=== PATIENT | female | born 1985 | race Caucasian/White ===

== ENCOUNTER 2020-03-23 15:01 | Outpatient (CLI) | payer OTHER, SELFPAY ==
[2020-03-23 15:45] VITALS: BP 118/78; PULSE 100
[2020-03-23 15:46] LABS: Basophils Absolute Auto 0.1 K/mm3 (0.0-0.1); Basophils Percent Auto 0.7 % (0.2-1.2); Eosinophils Absolute Auto 0.1 K/mm3 (0-0.3); Eosinophils Percent Auto 0.7 % (0-4.4); Hematocrit 33.4 % (37.0-47.0); Hemoglobin 11.5 g/dL (12.0-15.0); Immature Granulocyte Percent A 2.3 % (0-0.5); Lymphocytes Absolute Auto 1.95 K/mm3 (0.9-3.2); Lymphocytes Percent Auto 15.2 % (18.3-44.2); Mean Corpuscular HGB Conc 34.4 g/dl (32-36); Mean Corpuscular Volume 87.2 fl (80-100); Mean Platelet Volume 10.4 fl (7.4-10.4); Monocytes Absolute Auto 1.1 K/mm3 (0.1-0.6); Monocytes Percent Auto 8.2 % (2.6-8.5); Neutrophils Absolute Auto 9.4 K/mm3 (1.3-6.7); Neutrophils Percent Auto 72.9 % (45.5-73.1); Platelet Count Result 297 k/mm3 (150-375); Red Blood Count 3.83 M/mm3 (4.2-5.4); White Blood Count 12.9 K/mm3 (4.5-10.0)
[2020-03-23 15:52] LABS: Add Urine Microscopic? YES; Appearance Urine Cloudy (Clear); Bacteria Urine Trace /hpf; Bilirubin Urine Negative (Negative); Blood Urine Negative (Negative); Color Urine Yellow (Yellow); Glucose Urine UA Negative (Negative); Ketones Urine Negative (Negative); Leukocyte Esterase Ur Negative LEU/UL (NEGATIVE); Nitrate Urine Negative (Negative); Protein Urine Negative (Negative); RBC Urine 0-2 /hpf (0-2); Specific Grav Ur 1.012 (1.001-1.035); Squamous Epithelial Cell Urine Moderate /hpf (Few); Urobilinogen Urine Negative mg/dL (<2.0)
[2020-03-23 15:55] LABS: Alanine Aminotransferase 9 U/L (4-35); Albumin Level 3.4 g/dL (3.5-5.1); Alkaline Phosphatase 112 U/L (38-126); Aspartate Amino Transferase 16 U/L (14-36); Bilirubin,Total 0.2 mg/dL (0.2-1.3); Blood Urea Nitrogen 6 mg/dL (7-17); Calcium 8.8 mg/dL (8.4-10.2); Carbon Dioxide 19 mmol/L (22-30); Chloride 107 mmol/L (98-107); Estimated Glomerular Filt Rate > 60; Glucose 91 mg/dL (65-105); Potassium 4.1 mmol/L (3.4-5.0); Sodium 134 mmol/L (137-145); Uric Acid 4.9 mg/dL (2.5-7.5)
[2020-03-23 16:00] VITALS: BP 124/79; PULSE 96
[2020-03-23 16:10] VITALS: BP 118/78; PULSE 98
[2020-03-23 16:15] VITALS: BP 127/79; PULSE 101
[2020-03-23 16:30] VITALS: BP 125/77; PULSE 91
[2020-03-23 16:45] VITALS: BP 114/62; PULSE 95
[2020-03-23 17:12] LABS: Creatinine Urine 55.6 mg/dL; Total Protein Urine Random 15 mg/dL
--- NOTE | 2020-03-23 17:15 | PC.NURSE ---
Liliam Baca notified of lab results and BP's. OK to dc home.
== END 2020-03-23 17:16 | disposition home or self-care (01) ==
LOC: ANHOBOP 15:07 → ANHOBPP 15:09
PROVIDERS: Obstetrics & Gynecology; Visit Provider Obstetrics & Gynecology
DX: H53.8 Other visual disturbances (principal)
CPT/HCPCS: 36415; 59025; 80053; 81001; 82570; 84156; 84550; 85025; 87077; 87086; 87088; 99199

== ENCOUNTER 2020-04-01 05:30 | Inpatient (IN) | payer OTHER, SELFPAY ==
[2020-04-01] VITALS (60 sets, daily range): BP systolic 64–149; BP diastolic 30–101; PULSE 78–203; RESP 12–16; TEMP 36.7–37.3; O2SAT 99–100; BMI 31.4
--- NOTE | 2020-04-01 05:40 | LDADM ---
This patient, Jessica Damian, was admitted to Labor/Delivery/Recovery 104 on 04/01/20 at 05:30. Plans for labor, pain management and were discussed with patient. Patient/family oriented to hospital policies and general routines including ID bracelet, bed and alarms, visiting hours, pain management, procedures, bathroom and other care routines, personal items, smoking policy, room service/diet and guest tray routines, infant security routines, and visiting hours. Patient/Family are encouraged to report perceived risks to care and to ask questions if they do not understand what they are told or what they should do. See OBIX for further documentation.
[2020-04-01 06:19] LABS: Basophils Absolute Auto 0.1 K/mm3 (0.0-0.1); Basophils Percent Auto 0.6 % (0.2-1.2); Eosinophils Absolute Auto 0.2 K/mm3 (0-0.3); Eosinophils Percent Auto 1.5 % (0-4.4); Hematocrit 33.6 % (37.0-47.0); Hemoglobin 11.6 g/dL (12.0-15.0); Immature Granulocyte Absolute 0.35 K/mm3 (0.00-0.031); Immature Granulocyte Percent A 2.7 % (0-0.5); Lymphocytes Absolute Auto 2.44 K/mm3 (0.9-3.2); Lymphocytes Percent Auto 19.1 % (18.3-44.2); Mean Corpuscular HGB Conc 34.5 g/dl (32-36); Mean Corpuscular Hemoglobin 29.8 pg (26-34); Mean Corpuscular Volume 86.4 fl (80-100); Mean Platelet Volume 10.2 fl (7.4-10.4); Monocytes Absolute Auto 1.1 K/mm3 (0.1-0.6); Monocytes Percent Auto 8.7 % (2.6-8.5); Neutrophils Absolute Auto 8.6 K/mm3 (1.3-6.7); Neutrophils Percent Auto 67.4 % (45.5-73.1); Platelet Count Result 304 k/mm3 (150-375); Red Blood Count 3.89 M/mm3 (4.2-5.4); Red Cell Distribution Width 13.2 % (11.5-14.5); White Blood Count 12.8 K/mm3 (4.5-10.0)
[2020-04-01] MEDS: AMPICILLIN 2 GM/NS 100 ML 2 GM/100 ML BAG IVPB (06:22)
[2020-04-01] MEDS: LACTATED RINGERS 1,000 ML 125 ML IV CONT ×2 (06:22→10:13)
[2020-04-01] MEDS: OXYTOCIN 30 UNITS/NS 500 ML 30 UNITS/500 ML BAG IV CONT (06:22)
[2020-04-01 07:13] LABS: HIV 1/2 Ab P24 Ag Result Negative (Negative)
--- NOTE | 2020-04-01 07:17 | WPDANESEPP ---
Anes - Eval Pre Procedure Procedure: Labor Pain Management Date/Time: 04/01/20 07:17 Surgeon: Devin Acosta MD Preop Diagnosis: Pain during labor Pre Op Diagnosis: IOL Patient Data Age: 34 Gender: F Height: 5 ft 2 in Weight: 78 kg Last Vital Signs Temp 98.6 F 04/01/20 05:52 Pulse 97 04/01/20 06:16 BP 127/89 04/01/20 06:16 Allergies Allergy/AdvReac Type Severity Reaction Status Date / Time No Known Allergies Allergy Verified 03/23/20 13:09 Home Medications Medication Instructions Recorded Confirmed Type PNV cmb#95-ferrous fumarate-FA 1 tablet PO DAILY 03/23/20 03/23/20 History [] Laboratory Tests 04/01/20 04/01/20 04/01/20 06:08 06:08 06:08 WBC 12.8 K/mm3 H K/mm3 (4.5-10.0) RBC 3.89 M/mm3 L M/mm3 (4.2-5.4) Hgb 11.6 g/dL L g/dL (12.0-15.0) Hct 33.6 % L % (37.0-47.0) MCV 86.4 fl fl (80-100) MCH 29.8 pg pg (26-34) MCHC 34.5 g/dl g/dl (32-36) RDW 13.2 % % (11.5-14.5) Plt Count 304 k/mm3 k/mm3 (150-375) MPV 10.2 fl fl (7.4-10.4) Immature Gran % (Auto) 2.7 % H % (0-0.5) Neut % (Auto) 67.4 % % (45.5-73.1) Lymph % (Auto) 19.1 % % (18.3-44.2) Dickinson % (Auto) 8.7 % H % (2.6-8.5) Eos % (Auto) 1.5 % % (0-4.4) Baso % (Auto) 0.6 % % (0.2-1.2) Lymph # (Auto) 2.44 K/mm3 K/mm3 (0.9-3.2) Dickinson # (Auto) 1.1 K/mm3 H K/mm3 (0.1-0.6) Eos # (Auto) 0.2 K/mm3 K/mm3 (0-0.3) Baso # (Auto) 0.1 K/mm3 K/mm3 (0.0-0.1) Abs Immat Gran (auto) 0.35 K/mm3 H K/mm3 (0.00-0.031) Absolute Neuts (auto) 8.6 K/mm3 H K/mm3 (1.3-6.7) Absolute Nucleated RBC 0.0 K/mm3 K/mm3 (0.0-0.012) Nucleated RBC % 0.0 % % (0.0-0.2) RPR Pending HIV 1&2 Ab/P24 Ag 4thGn Negative (Negative) : gestational age (EDC 04/07/20) Patient hx anesthesia problems: none Family hx anesthesia problems: none [facility] Past Medical History Medical History (Updated 04/01/20 @ 07:20 by Annabelle Bustamante CRNA) Tobacco abuse Wrist fracture Surgical History Surgical History (Updated 04/01/20 @ 07:19 by Annabelle Bustamante CRNA) History of appendectomy Social History Social History Smoking packs per day: 0.50 Smoking cigarettes per day: 10.0 Years smoked: 20 Smoking pack-years: 10.00 Smoking status: Current every day smoker Tobacco type: cigarettes Second hand tobacco smoke exposure: Yes Substance use: never Spiritual care concerns: No Exam Day of Procedure 04/01/20 07:17
--- NOTE | 2020-04-01 07:49 | WPDOBADMIT ---
Obstetrics - Admit Note Admission Note: record reviewed. No pertinent additions to the history and/or any subsequent changes in the physical findings that are not consistent with the expected course of the were found. Pt presented this morning for induction with ruptured membranes, anticipate vaginal delivery Additions to the history and/or subsequent changes in the physical findings follow. None.
[2020-04-01 08:21] LABS: Amphetamine Screen Urine Negative (Negative); Barbiturate Screen Urine Negative (Negative); Benzodiazepines Screen Urine Negative (Negative); Cannabinoid Screen Urine Negative (Negative); Cocaine Screen Urine Negative (Negative); Methadone Screen Urine Negative (Negative); Opiate Screen Urine Negative (Negative); Phencyclidine Screen Urine Negative (Negative)
[2020-04-01] MEDS: AMPICILLIN 1 GM/NS 50 ML 1 GM/50 ML BAG IVPB (10:13)
--- NOTE | 2020-04-01 13:59 | PM.OBPRVD ---
OB - Delivery Note Procedure Delivery date: 04/01/20 Procedure: vaginal delivery Intrapartal events: None Delivery augmentation: pitocin Route of delivery: Laceration description: Perineal - 1st Degree Delivery repair: vicryl Specimen: No Estimated blood loss (mL): 260 Anesthesia type: Epidural Disposition: other () Baby Date of : 04/01/20 Time of : 13:47 Weeks of gestation at delivery: 39 Weight (pounds): 7 Weight (ounces): 13 presentation: vertex position: Left Occiput Anterior Placenta delivery description: Spontaneous cord vessel description: 3 Vessels score one minute: 8 score five minutes: 9
[2020-04-01] MEDS: OXYTOCIN 30 UNITS/NS 500 ML 30 UNITS/500 ML BAG 125 UNITS IV CONT (14:21)
--- NOTE | 2020-04-01 17:14 | PC.NURSE ---
Patient transferred to post room #285 per W/C. Support person present. Oriented to unit, room, information board, rooming in, admission packet and security measures. Patient verbalizes understanding.
[2020-04-01] MEDS: IBUPROFEN 600 MG TABLET PO (17:59)
[2020-04-01] MEDS: BENZOCAINE 20% AER SPR (*SP) 56 GM CAN 1 SPRAY TOPICAL (18:01)
[2020-04-01] MEDS: WITCH HAZEL 40 PADS 1 PAD TOPICAL (18:01)
[2020-04-02] MEDS: IBUPROFEN 600 MG TABLET PO ×4 (02:02→23:07)
[2020-04-02 04:15] VITALS: BP 116/64; PULSE 91; RESP 16; TEMP 37.1; O2SAT 98
[2020-04-02 04:37] LABS: Hematocrit 28.8 % (37.0-47.0); Hemoglobin 9.9 g/dL (12.0-15.0)
[2020-04-02] MEDS: ACETAMINOPHEN 325 MG TABLET 650 MG PO (06:14)
[2020-04-02 07:40] LABS: Rapid Plasma Reagin Non-Reactive (NonReactive)
[2020-04-02] MEDS: POLYSACCHARIDE IRON COMPLEX 150 MG CAPSULE PO ×2 (07:48→15:55)
[2020-04-02] MEDS: DOCUSATE SODIUM 100 MG CAPSULE PO ×2 (07:48→15:55)
[2020-04-02] MEDS: MULTIVIT/MIN/PREN/FOL AC/IRON TABLET 1 TAB PO (07:49)
[2020-04-02 08:00] VITALS: BP 117/79; PULSE 85; RESP 18; TEMP 36.9; O2SAT 100
--- NOTE | 2020-04-02 08:14 | PM.OBPNVD ---
OB - PN: Subj Subjective Date/time seen: 04/02/20 08:14 OB - PN: Obj Data Labs CBC & Chem 7: 04/02/20 04:00 Labs: Laboratory Results - last 24 hr 04/01/20 04/01/20 04/02/20 06:08 07:59 04:00 Hgb 9.9 L Hct 28.8 L Urine Opiates Screen Negative Urine Methadone Screen Negative Ur Barbiturates Screen Negative Ur Phencyclidine Scrn Negative Ur Amphetamine Screen Negative U Benzodiazepines Scrn Negative Urine Cocaine Screen Negative U Cannabinoids Screen Negative RPR Non-reactive OB - PN A/P Time Spent With Patient Time: Total time spent is greater than 50% in coordination of care (as documented) at patient's floor/unit and/or counseling patient: Review of Systems Review of Systems: All systems reviewed & are unremarkable except as noted in HPI and below Exam Narrative: Exam Narrative: Fundus firm and vaginal flow controlled. Const: General: comfortable Resp: Effort & Inspection: normal respiratory effort Cardio: Rate: regular rate Psych: Appearance: grossly normal Affect: normal affect Attitude: cooperative Judgement: Good judgement present (Psych)
--- NOTE | 2020-04-02 09:45 | WPDANLDPN2 ---
Anes-Prog Note L&D Date/Time: 04/02/20 09:45 Comfortable throughout: labor and delivery Neuraxial method: epidural Epidural/Spinal procedure site: clean & non-tender Neuro status: Neuro function grossly intact. Cardiovascular status: normal Respiratory status: normal Airway patency: baseline Mental status: baseline Post-Op hydration status: normal Vital Signs: Last Vital Signs Temp 37.1 C 04/02/20 04:15 Pulse 91 04/02/20 04:15 Resp 16 04/02/20 04:15 BP 116/64 04/02/20 04:15 Pulse Ox 98 04/02/20 04:15 Post-procedural complaints: none Patient feedback: Patient satisfied with anesthetic care.
--- NOTE | 2020-04-02 15:35 | PC.NURSE ---
Consulted with patient, mother reports she is breast and bottle feeding. Mother states latches eagerly nurses for a short time and will fall asleep. Mother has slight tenderness with feedings. Reviewed feeding cues, frequencies, duration of feedings, feeding elimination flow sheet, and signs of adequate intake. Demonstrated stimulation techniques to wake for feeding. Mother puts to breast in cradle, allowing infant to self attach with a shallow latch. Assisted with infant to breast. Reviewed positioning/alignment in cross cradle, holding breast in U hold and guided asymmetrical latch on. Discussed rational for each. was able to latch correctly. nursed eagerly, with steady draws and frequent swallowing noted. Reviewed signs of a correct latch, effective nursing and suck swallow ratio. was[able/unable] to maintain latch without discomfort to mother. Nipple care reviewed. Advised mother to stimulate to keep nursing effectively to assist with maintaining deep latch and increased intake. Reviewed it is her choice to supplement as she chooses, is nursing effectively and does not require supplement by observation. Instructed mother to call out for RN assistance if she is unable to latch for feeding or she has discomfort with nursing. Instructed feeding should be initiated three hours from start of last feeding or if feeding cues are noted before. Mother voiced understanding of information shared.
[2020-04-02] MEDS: WITCH HAZEL 40 PADS 1 PAD TOPICAL (18:01)
[2020-04-02 20:58] VITALS: BP 136/75; PULSE 97; RESP 17; TEMP 36.8
[2020-04-03 07:00] VITALS: BP 114/77; PULSE 87; RESP 14; TEMP 36.7
[2020-04-03] MEDS: POLYSACCHARIDE IRON COMPLEX 150 MG CAPSULE PO (07:08)
[2020-04-03] MEDS: MULTIVIT/MIN/PREN/FOL AC/IRON TABLET 1 TAB PO (07:08)
[2020-04-03] MEDS: DOCUSATE SODIUM 100 MG CAPSULE PO (07:08)
[2020-04-03] MEDS: IBUPROFEN 600 MG TABLET PO (07:08)
--- NOTE | 2020-04-03 07:38 | PM.OBPNVD ---
OB - PN: Subj Subjective Date/time seen: 04/03/20 07:38 Patient comments: no complaints, pain well controlled and other (Lochia similar to menses) [place] baby status: doing well OB - PN: Obj Data Labs CBC & Chem 7: 04/02/20 04:00 Labs: Laboratory Results - last 24 hr 04/01/20 06:08 RPR Non-reactive OB - PN A/P Plan day: 2 (s/p vaginal delivery, doing well) Plan: routine care, discharge home and other (Follow up in office in 4 weeks) Time Spent With Patient Time: Total time spent is greater than 50% in coordination of care (as documented) at patient's floor/unit and/or counseling patient: Exam Const: General: no acute distress GI: Inspection: other (Fundus firm and nontender below umbilicus) GI Palp: Yes Soft to palpation and No Tenderness to palpation present (GI) Extrem: General: no edema
--- NOTE | 2020-04-03 09:10 | PC.NURSE ---
Observed mother is able to independently latch with appropriate positioning/alignment. Mother reports previous assist has assisted with deeper latch. She denies any nipple discomfort, is feeding as required and waking infant to feed if needed. Infant has had at least 8 effective feedings in the past 24 hours, and is currently meeting outcomes for weight, output, jaundice and feeding frequencies. Mother states she feels confident to continue effective at home. Reviewed transition to breast milk, signs of adequate intake, and engorgement/relief. Instructed to call ICP if intake/output less than required. Reviewed regular medications mother is taking. Information provided per Geraldine. Reviewed community resources on the [facility] website and in the Mom/Baby guide. Information on outpatient services provided. Mother has no further questions at this time.
--- NOTE | 2020-04-03 09:27 | PC.NURSE ---
Patient viewed the discharge video Mother & Baby Care, The First Two Weeks . Patient was given the opportunity and encouraged to ask questions. Patient verbalized understanding of information shared and has been given the mother/baby guide for home reference.
[2020-04-03] MEDS: TETANUS,DIPHTHERIA,AC PERTUSSIS ADULT (0.5 ML) BOOSTRIX IM (11:45)
--- NOTE | 2020-04-06 07:13 | PM.OBDSVD ---
DS: Admitting Diagnosis Admitting Diagnosis Admitting Diagnosis: Encounter for supervision of normal , unspecified, third trimester OB - DS: Summary OB Procedures : None OB Procedures Intrapartum: Spontaneous Vag Delivery OB Procedures: : None Time Spent with Patient Time attestation: Total time spent providing and/or coordinating discharge services: Discharge Plan Discharge Consulting providers: Vernon Diaz ; Cherelle Baca ; Ginny Watson Discharging Clinician: Leah Hylton Patient Disposition: Home, Self-Care Activity: may drive after 2 weeks and as tolerated Diet: regular Discharge Instructions: Education: Mom and Baby Guide Given to: Mother Follow-Up: Call your delivering provider's office for an appointment to be seen in: 4 Weeks Mom and baby should come to the [facility] for the follow-up appointment. Appointment Date/Time: April 04, 2020 at 11:00 am What to expect at your follow-up visit: Blood Pressure Check Physical Assessment Call [phone] if you are unable to keep your appointment time. BREAST CARE: 1. Wear a snug supportive bra. 2. For engorgement discomfort: Breast Feeding: A. Apply warm moist washcloths B. Express milk as needed to relieve engorgement C. Wear loose clothing 3. For sore nipples: A. Identify correct latch-on B. Apply warm moist washcloths before and after nursing C. Air dry nipples after nursing D. May apply Lansinoh cream to nipples EPISIOTOMY/PERINEAL CARE: 1. Until bleeding stops, use your jb bottle after urinating 2. Change your pad frequently throughout the day 3. You may take sitz baths several times a day (fill your bathtub with warm water and soak for 20 minutes.) Do NOT bathe in the water 4. No tub baths until seen by your physician - You may shower ACTIVITY: 1. Rest as much as possible. 2. Do not exercise or lift anything heavier than your baby (such as laundry or other children.) 3. Avoid stairs or driving as much as possible. 4. Do not put anything into the vagina. No douching, tampons, or sexual activity until seen by physician. NOTIFY PHYSICIAN IF YOU HAVE ANY QUESTIONS OR IF ANY OF THE FOLLOWING SYMPTOMS OCCUR: 1. If your perineum becomes red, swollen, or more painful than what you have experienced in the hospital. 2. If your vaginal bleeding becomes foul smelling. 3. If your vaginal bleeding becomes more heavy than a period or if your bleeding changes from pink to bright red. However, you may pass an occasional walnut-sized clot once or twice for the first week . 4. If you experience a sharp, shooting pain in your calves. 5. If you discover a hard, reddened area on your breast or if you experience flu-like symptoms. DIET: 1. Eat regular, well-balanced meals. 2. Drink plenty of fluids daily. If , drink to thirst. Stand Alone Forms: General Discharge Information Follow-up/Referrals: Cherelle Baca CNM [Certified Nurse Quitline Counselor] - Call for Appointment Discharge Medications: New ibuprofen 600 mg Tablet 600 mg PO Q6H PRN (Reason: Cramping) Qty: 60 RF: 0 Continued PNV cmb#95-ferrous fumarate-FA [] 28 mg iron- 800 mcg Tablet 1 tablet PO DAILY RF: 0 Date of admission: 04/01/20 05:30 Primary Care Provider: PHYSICIAN,[employer] PLAYER Admitting Provider: Leah Hylton Discharge Date/Time: 04/03/20 12:12 Attending physician on admission: Leah Hylton
== END 2020-04-03 12:12 | disposition home or self-care (01) | DRG 560 ==
LOC: ANHLDR 05:32 → ANHOB2 16:28
PROVIDERS: Advanced Practice Midwife; Admitting Provider Obstetrics & Gynecology; Visit Provider Obstetrics & Gynecology
DX: O99.334 Smoking (tobacco) complicating childbirth (principal); Z37.0 Single live birth; Z3A.39 39 weeks gestation of pregnancy; F17.210 Nicotine dependence, cigarettes, uncomplicated; O70.0 First degree perineal laceration during delivery
CPT/HCPCS: 36415; 80307; 84112; 85014; 85018; 85025; 86592; 86703; 86850; 86900; 86901; 90715; A9270; G0432; J0290; J2590; J2795; J7120

== ENCOUNTER 2020-09-06 12:03 | Emergency (ER) | payer OTHER, SELFPAY ==
--- NOTE | ~2020-09-06 | CT_ITS ---
EXAMINATION: CT abdomen pelvis wo con DATE: 09/06/2020 13:16 INDICATION: Right flank pain for 2 days TECHNIQUE: Computed tomography (CT) of the abdomen and pelvis was performed without intravenous contr ast. The dose-length product was 273.28 mGy-cm. Automated exposure control and iterative reconstruction technique were employed. COMPARISON: None. FINDINGS: Lung bases are unremarkable. No significant pleural or pericardial effusion. Heart size is normal. The liver, spleen, pancreas, adrenal glands. The liver, spleen, pancreas, adrenal glands and kidneys are unremarkable. Gallbladder contains stones . Uterus is enlarged. No renal/ureteral stones or hydronephrosis. No significant vascular abnormality . No lymphadenopathy. Nonobstructive bowel gas pattern. No free air or free fluid. IMPRESSION: 1. No acute abdominal abnormality. 2: Cholelithiasis. Reviewed, dictated and finalized at location B.
[2020-09-06 12:05] VITALS: BP 146/88; PULSE 100; RESP 17; TEMP 36.2; O2SAT 100
[2020-09-06 12:39] LABS: Add Urine Microscopic? YES; Appearance Urine Clear (Clear); Bacteria Urine Trace /hpf; Bilirubin Urine Negative (Negative); Blood Urine Negative (Negative); Color Urine Yellow (Yellow); Glucose Urine UA Negative (Negative); Ketones Urine Negative (Negative); Leukocyte Esterase Ur Trace LEU/UL (Negative); Mucus Urine Heavy /lpf; Nitrate Urine Negative (Negative); Protein Urine Negative (Negative); Specific Grav Ur 1.027 (1.001-1.035); Squamous Epithelial Cell Urine Many /hpf (Few)
[2020-09-06 12:40] LABS: Basophils Absolute Auto 0.1 K/mm3 (0.0-0.1); Basophils Percent Auto 0.6 % (0.2-1.2); Eosinophils Absolute Auto 0.1 K/mm3 (0-0.3); Eosinophils Percent Auto 1.5 % (0-4.4); Hematocrit 35.8 % (37.0-47.0); Immature Granulocyte Absolute 0.03 K/mm3 (0.00-0.031); Immature Granulocyte Percent A 0.3 % (0-0.5); Lymphocytes Absolute Auto 1.37 K/mm3 (0.9-3.2); Lymphocytes Percent Auto 15.6 % (18.3-44.2); Mean Corpuscular HGB Conc 36.3 g/dl (32-36); Mean Corpuscular Volume 85.4 fl (80-100); Monocytes Absolute Auto 0.8 K/mm3 (0.1-0.6); Monocytes Percent Auto 8.8 % (2.6-8.5); Neutrophils Absolute Auto 6.4 K/mm3 (1.3-6.7); Neutrophils Percent Auto 73.2 % (45.5-73.1); Platelet Count Result 229 k/mm3 (150-375); Red Blood Count 4.19 M/mm3 (4.2-5.4); Red Cell Distribution Width 12.1 % (11.5-14.5); White Blood Count 8.8 K/mm3 (4.5-10.0)
[2020-09-06 12:52] LABS: Anion Gap 5 mmol/L (8-16); Blood Urea Nitrogen 7 mg/dL (7-17); Calcium 8.3 mg/dL (8.4-10.2); Carbon Dioxide 25 mmol/L (22-30); Chloride 103 mmol/L (98-107); Estimated CRCL calculation 108 ml/min; Estimated Glomerular Filt Rate > 60; Glucose 118 mg/dL (65-105); Potassium 3.5 mmol/L (3.4-5.0); Sodium 133 mmol/L (137-145)
--- NOTE | 2020-09-06 12:52 | ED.ABDPAIN ---
HPI - Abdominal Pain General Chief Complaint: Abdominal Pain Stated Complaint: rt flank pain Time Seen by Provider: 09/06/20 12:15 History of Present Illness HPI narrative: Patient is a 35-year-old female complaining of right flank pain radiating to her right lower quadrant, 6 out of 10, sharp, started yesterday. Patient denies any nausea, vomiting, diarrhea or urinary symptoms. Patient denies any chest pain shortness of breath or fever. Related Data Allergies Allergy/AdvReac Type Severity Reaction Status Date / Time No Known Allergies Allergy Verified 09/06/20 12:08 Review of Systems Review of Systems: All systems reviewed & are unremarkable except as noted in HPI and below Constitutional: Constitutional: Denies body ache(s), Denies chills, Denies excessive sweating, Denies fatigue, Denies fever(s), Denies headache(s), Denies lethargy, Denies malaise, Denies weakness and Denies weight loss Eyes: Eyes: Denies blurry vision, Denies change in vision and Denies loss of vision ENT: Denies dizziness, Denies ear discharge, Denies headache(s), Denies lip swelling, Denies epistaxis, Denies nasal congestion, Denies neck pain, Denies throat swelling and Denies tongue swelling Cardiovascular: Cardiovascular: Denies chest pain, Denies chest pain at rest, Denies chest pain with activity, Denies diaphoresis, Denies rapid heart rate, Denies edema, Denies irregular heart rhythm, Denies lightheadedness, Denies palpitations, Denies dyspnea and Denies dyspnea on exertion Respiratory: Respiratory: Denies chest congestion, Denies cough, Denies hemoptysis, Denies dyspnea and Denies dyspnea on exertion Gastrointestinal: Gastrointestinal: Denies abdominal pain, Denies melena, Denies hematochezia, Denies diarrhea, Denies nausea, Denies vomiting and Denies hematemesis Musculoskeletal: Musculoskeletal: Denies abnormal gait, Denies deformity, Denies joint swelling, Denies limited range of motion, Denies neck pain and Denies numbness Neurologic: Denies Abnormal speech present, Denies abnormal gait, Denies confusion, Denies dizziness, Denies headache(s), Denies focal weakness, Denies loss of vision, Denies numbness, Denies Other visual disturbances, Denies Sensory deficit (Neuro) and Denies weakness Psychiatric: Psychiatric: Denies confusion, Denies depression, Denies auditory hallucinations, Denies homicidal ideation and Denies suicidal ideation Endocrine: Endocrine: Denies cold intolerance, Denies excessive sweating, Denies fatigue, Denies heat intolerance and Denies palpitations Hematologic/Lymphatic: Hematologic/Lymphatic: Denies easy bleeding and Denies easy bruising Allergic/Immunologic: Allergic/Immunologic: Denies lip swelling, Denies throat swelling and Denies tongue swelling PMFSH Past Medical History Medical History (Updated 09/06/20 @ 14:50 by Karlos Stewart MD) Tobacco abuse Wrist fracture Surgical History Surgical History (Updated 04/01/20 @ 07:19 by Annabelle Bustamante CRNA) History of appendectomy Family History Family History Sibling Thyroid ca Social History Social History Smoking packs per day: 0.50 Smoking cigarettes per day: 10.0 Years smoked: 20 Smoking pack-years: 10.00 Smoking status: Current every day smoker Tobacco type: cigarettes Second hand tobacco smoke exposure: Yes Substance use: never Gender identity (if verbalized by the patient): Female Spiritual care concerns: No Exam Const: General: cooperative, healthy appearing, comfortable, no acute distress, well developed, alert and awake; No confusion Orientation/consciousness: oriented to person, oriented to place, oriented to time, patient oriented x3 and No confusion Limitations: no limitations HENMT: Head: normal to inspection, normocephalic and atraumatic Ears: hearing grossly normal bilaterally, TM normal on the right and TM normal on the left General nose exam
[2020-09-06] MEDS: KETOROLAC 30 MG/ML VIAL (*BKC) IV PUSH (13:35)
[2020-09-06 15:14] VITALS: BP 136/88; PULSE 84; RESP 16; O2SAT 97
== END 2020-09-06 15:15 | disposition home or self-care (01) ==
PROVIDERS: Emergency Medicine; Emergency Provider Emergency Medicine
DX: K80.20 Calculus of gallbladder without cholecystitis without obstruction (principal); F17.210 Nicotine dependence, cigarettes, uncomplicated
CPT/HCPCS: 36415; 74176; 80048; 81001; 81025; 85025; 96374; 99284; J1885

== ENCOUNTER 2021-07-17 15:01 | Emergency (ER) | payer OTHER, SELFPAY ==
[2021-07-17 15:11] VITALS: BP 141/78; PULSE 98; RESP 16; TEMP 35.8; O2SAT 99
--- NOTE | 2021-07-17 15:11 | ED.WOUNDLAC ---
HPI - Wound/Laceration General Chief Complaint: Extremity Injury, Upper Stated Complaint: painful left shoulder Time Seen by Provider: 07/17/21 15:11 Source: patient and RN notes reviewed Mode of arrival: ambulatory Limitations: no limitations History of Present Illness HPI narrative: 36-year-old female presents to the [facility] with an abscess to the posterior left shoulder. Unsure of how she got the infection. Has been there for a couple of days. Has been taking Tylenol for pain. Area is 4 cm in diameter, raised, hot to touch. Related Data Home Medications Medication Instructions Recorded Confirmed norethindrone (contraceptive) mg 07/17/21 Allergies Allergy/AdvReac Type Severity Reaction Status Date / Time No Known Allergies Allergy Verified 09/06/20 12:08 Review of Systems Review of Systems: All systems reviewed & are unremarkable except as noted in HPI and below Constitutional: Constitutional: Reports no additional constitutional complaints Eyes: Eyes: Reports no additional eye complaints ENT: Reports system reviewed and no additional complaints, except as documented Cardiovascular: Cardiovascular: Reports no additional cardiovascular complaints Respiratory: Respiratory: Reports no additional respiratory complaints Musculoskeletal: Musculoskeletal: Reports no additional musculoskeletal complaints Integumentary/Breasts: Skin/Breast: Reports as per HPI and Reports erythema Neurologic: Reports system reviewed and no additional complaints, except as documented Psychiatric: Psychiatric: Reports no additional psychiatric complaints Allergic/Immunologic: Allergic/Immunologic: Reports no additional allergic/immunologic complaints PMFSH Past Medical History Medical History (Updated 07/18/21 @ 16:08 by Steph Krishnamurthy) Tobacco abuse Wrist fracture Surgical History Surgical History History of appendectomy Family History Family History Sibling Thyroid ca Social History Social History Smoking packs per day: 0.50 Smoking cigarettes per day: 10.0 Years smoked: 20 Smoking pack-years: 10.00 Smoking status: Current every day smoker Tobacco type: cigarettes Second hand tobacco smoke exposure: Yes Substance use: never Gender identity (if verbalized by the patient): Female Spiritual care concerns: No Exam Const: General: healthy appearing, no acute distress and alert Nutritional Appearance: well nourished Orientation/consciousness: patient oriented x3 Limitations: no limitations HENMT: Head: normal to inspection Eyes: Pupils: Equal, round and reactive pupils present Neck: Neck: normal visual inspection, no lymphadenopathy and no meningeal signs Chest: Chest palpation & inspection: normal inspection of the chest Resp: Effort & Inspection: normal respiratory effort Auscultation: clear to auscultation bilaterally Cardio: Rate: regular rate Rhythm: regular rhythm Back/Spine/Pelvis: Back: no CVA tenderness Skin: Wounds: wounds noted (Abscess left scapular area) Full body images: 1. 4 cm diameter red, raised small fluctuant center, cellulitic changes Neuro: General: patient oriented x3, moves all extremities, no meningeal signs and no focal motor deficits Speech: normal speech Gait exam (Neuro): Normal gait present Extrem: General: normal to inspection Psych: Appearance: grossly normal and well kempt Mental Status: mental status grossly normal Affect: normal affect Attitude: cooperative Thought content: Yes Normal thought content present Course Course Emergency Course: Discharge instructions reviewed with patient, as well as provided in writing per nursing staff. The instructions also include specific and strict return/GO TO THE ER as well as f/u information. All questions have been answered
--- NOTE | 2021-07-17 15:25 | PC.NURSE ---
metals sales representative in to do i and d.
== END 2021-07-17 15:38 | disposition home or self-care (01) ==
PROVIDERS: Emergency Provider Nurse Practitioner
DX: L03.312 Cellulitis of back [any part except buttock and flank] (principal); F17.210 Nicotine dependence, cigarettes, uncomplicated
CPT/HCPCS: 10060; 87070; 87075; 87147; 87186; 87205; 99213; G0463

== ENCOUNTER 2021-07-20 00:38 | Emergency (ER) | payer OTHER, SELFPAY ==
[2021-07-20 00:41] VITALS: BP 129/75; PULSE 110; RESP 18; TEMP 36.5; O2SAT 100
[2021-07-20 02:16] VITALS: BP 107/84; PULSE 93; RESP 20; O2SAT 100
--- NOTE | 2021-07-20 03:02 | PC.NURSE ---
EDP at bedside for I&D.
--- NOTE | 2021-07-20 03:24 | ED.SKABFB ---
HPI - Skin/Abscess/Foreign Bdy General Chief complaint: Skin/Abscess/Foreign Body Stated complaint: wound lt shoulder Time Seen by Provider: 07/20/21 02:06 History of Present Illness HPI narrative: Patient presents for wound check. Patient reports she was seen a couple days ago at urgent care had an I&D performed was started on Bactrim and discharged home. Reports her pain and swelling have gotten progressively worse so she came to the ER for evaluation pain is achy, constant, worse with trying to use her extremity or any sort of movement radiates up her neck and down her arm. She denies any fevers, nausea, vomiting Related Data Home Medications Medication Instructions Recorded Confirmed norethindrone (contraceptive) mg 07/17/21 Allergies Allergy/AdvReac Type Severity Reaction Status Date / Time No Known Allergies Allergy Verified 07/20/21 00:47 Review of Systems Review of Systems: CONSTITUTIONAL: Denies fever, chills, or sweats. EYES: Denies visual changes, redness, or discharge. ENT: Denies rhinorrhea, congestion, sore throat, or otalgia. CARDIOVASCULAR: Denies chest pain, palpitations, or edema. RESPIRATORY: Denies cough or dyspnea. GASTROINTESTINAL: Denies abdominal pain, nausea, vomiting, or diarrhea. GENITOURINARY: Denies dysuria or hematuria. SKIN: Denies rash or itching. MUSCULOSKELETAL: Denies back pain, joint pain, or myalgia. NEUROLOGIC: Denies headache, numbness, dizziness, or weakness. PSYCHIATRIC: Denies anxiety or depression. All systems reviewed & are unremarkable except as noted in HPI and below PMFSH Past Medical History Medical History Tobacco abuse Wrist fracture Surgical History Surgical History History of appendectomy Family History Family History Sibling Thyroid ca Social History Social History Smoking packs per day: 0.50 Smoking cigarettes per day: 10.0 Years smoked: 20 Smoking pack-years: 10.00 Smoking status: Current every day smoker Tobacco type: cigarettes Second hand tobacco smoke exposure: Yes Substance use: never Gender identity (if verbalized by the patient): Female Spiritual care concerns: No Exam Narrative: GENERAL: Well-appearing, well-nourished, and in no acute distress. HEAD: Normocephalic, atraumatic. EYES: PERRLA and EOMI. ENT: Nares clear, no rhinorrhea or epistaxis. Mucous membranes moist. NECK: Supple. No masses. No JVD EXTREMITIES: Limited range of motion of the left shoulder due to pain Back: There is moderate-sized area edema partially 1 x 2 cm with purulent material being drained from the central aspect of the edema. There is surrounding erythema approximately 3 x 3 cm area. It is exquisitely tender to palpation SKIN: Warm, dry, no rash. NEURO: No focal deficits. Alert and oriented x3. PSYCH: Normal mood and affect. Course Vital Signs Vital signs: Vital Signs Temperature 36.5 C 07/20/21 00:41 Pulse Rate 110 H 07/20/21 00:41 Respiratory Rate 18 07/20/21 00:41 Blood Pressure 129/75 07/20/21 00:41 Pulse Oximetry 100 07/20/21 00:41 Temperature 36.5 C 07/20/21 00:41 Pulse Rate 89 07/20/21 03:41 Respiratory Rate 18 07/20/21 03:41 Blood Pressure 116/78 07/20/21 03:41 Pulse Oximetry 100 07/20/21 03:41 Procedures Abscess I/D back: Date of Incision: 07/20/21 Time of Incision: 03:18 Side (if applicable): left Sedation/analgesia: none Local Anesthetic: lidocaine 1% and with epi Amount of anesthesia used (mL): 7 Technique: incised with #11 blade and probed loculations Amount of fluid expressed (mL): 6 Irrigation: Yes Packing used?: plain I&D Results: Pus and Blood MDM - Skin/Abscess/Foreign Bdy
[2021-07-20] MEDS: MORPHINE SULFATE INJ (*CRX) 10 MG/ML AMP IM (03:34)
[2021-07-20 03:41] VITALS: BP 116/78; PULSE 89; RESP 18; O2SAT 100
== END 2021-07-20 04:00 | disposition home or self-care (01) ==
PROVIDERS: Emergency Provider Emergency Medicine
DX: L02.414 Cutaneous abscess of left upper limb (principal); F17.210 Nicotine dependence, cigarettes, uncomplicated
CPT/HCPCS: 10060; 10061; 96372; 99283; J2270

== ENCOUNTER 2021-07-21 15:31 | Emergency (ER) | payer OTHER, SELFPAY ==
[2021-07-21 15:33] VITALS: BP 126/59; PULSE 100; RESP 18; TEMP 37.1; O2SAT 100
--- NOTE | 2021-07-21 16:28 | ED.WOUNDLAC ---
HPI - Wound/Laceration General Chief Complaint: Wound/Laceration Stated Complaint: wound recheck Time Seen by Provider: 07/21/21 15:41 Source: patient Mode of arrival: ambulatory Limitations: no limitations History of Present Illness HPI narrative: This is a 36-year-old female that presents to the emergency department for wound check. Reports she had I&D of an abscess on her left upper back here a couple of days ago. She presents for packing removal and a wound check today. She is currently on cephalexin and Bactrim. Reports continuing drainage from the area. Denies fever. Related Data Home Medications Medication Instructions Recorded Confirmed norethindrone (contraceptive) mg 07/17/21 Allergies Allergy/AdvReac Type Severity Reaction Status Date / Time No Known Allergies Allergy Verified 07/20/21 00:47 Review of Systems Review of Systems: CONSTITUTIONAL: Denies fever SKIN: Reports abscess All systems reviewed & are unremarkable except as noted in HPI and below PMFSH Past Medical History Medical History Tobacco abuse Wrist fracture Surgical History Surgical History History of appendectomy Family History Family History Sibling Thyroid ca Social History Social History Smoking packs per day: 0.50 Smoking cigarettes per day: 10.0 Years smoked: 20 Smoking pack-years: 10.00 Smoking status: Current every day smoker Tobacco type: cigarettes Second hand tobacco smoke exposure: Yes Substance use: never Gender identity (if verbalized by the patient): Female Spiritual care concerns: No Exam Narrative: GENERAL: Well-appearing, well-nourished, and in no acute distress. HEAD: Normocephalic, atraumatic. EYES: EOMI. BACK: Small-moderate area of erythema and edema to the left upper back. There is an incision in the middle of the area with packing in place. Wound is oozing pus. EXTREMITIES: Normal range of motion. No edema. SKIN: Warm, dry, no rash. NEURO: No focal deficits. Alert and oriented x3. PSYCH: Normal mood and affect Course Vital Signs Vital signs: Vital Signs Temperature 98.7 F 07/21/21 15:33 Pulse Rate 100 07/21/21 15:33 Respiratory Rate 18 07/21/21 15:33 Blood Pressure 126/59 L 07/21/21 15:33 Pulse Oximetry 100 07/21/21 15:33 Temperature 98.7 F 07/21/21 15:33 Pulse Rate 100 07/21/21 15:33 Respiratory Rate 18 07/21/21 15:33 Blood Pressure 126/59 L 07/21/21 15:33 Pulse Oximetry 100 07/21/21 15:33 MDM - Wound/Laceration MDM Narrative Medical decision making narrative: Patient presents to the emergency department for a wound to the left upper back. She is afebrile and nontoxic-appearing. Has an abscess to the area that was drained in the emergency department a couple of days ago. A wound culture was sent which has resulted and is positive for MRSA. It is resistant to Bactrim which patient is currently taking. Patient's antibiotic will be changed to clindamycin based on sensitivity results. Patient instructed on continued wound care. She is to follow-up with primary care doctor. She was given warnings to return to the ER Lab Data Attestation: I reviewed the patient's lab results. Critical Care Time Critical Care Time Critical Care Time: No Discharge Plan Discharge Clinical Impression: Abscess Patient Disposition: Home, Self-Care Condition: Stable Instructions: Antibiotic Form, Abscess (ED) Additional Instructions: Return if symptoms worsen or concerns: any increase in redness, swelling, pain, or fever over 101 Stop Bactrim and Cephalexin. Start Clindamycin. Clean wound with mild soapy water daily. Apply antibiotic ointment and clean dressing at least three times daily. Warm compresses
[2021-07-21] MEDS: CLINDAMYCIN HCL 150 MG CAP 300 MG PO (16:43)
--- NOTE | 2021-07-21 16:50 | PC.NURSE ---
wound packing removed and repacked by PA.dressing applied by MARCIN
== END 2021-07-21 16:53 | disposition home or self-care (01) ==
LOC: ANHED 16:34
PROVIDERS: Emergency Provider Emergency Medicine
DX: L02.212 Cutaneous abscess of back [any part, except buttock and flank] (principal); B95.62 Methicillin resistant Staphylococcus aureus infection as the cause of diseases classified elsewhere; F17.210 Nicotine dependence, cigarettes, uncomplicated
CPT/HCPCS: 99283; A9270

== ENCOUNTER 2021-10-04 17:29 | Emergency (ER) | payer OTHER, SELFPAY ==
[2021-10-04 17:37] VITALS: BP 140/84; PULSE 102; RESP 18; TEMP 37.2; O2SAT 99
[2021-10-04 17:39] VITALS: BP 140/84; PULSE 102; RESP 18; TEMP 37.2; O2SAT 99
--- NOTE | 2021-10-04 18:46 | ED.FEMALEGU ---
HPI - Female Genitourinary General Chief complaint: Urogenital-Female Stated complaint: Rash,Yeast Infection Time Seen by Provider: 10/04/21 18:47 Source: patient, RN notes reviewed and old records reviewed Mode of arrival: ambulatory Limitations: no limitations History of Present Illness HPI Narrative: 36 year old female who [facility] with complaints of having thick vaginal white discharge for the past 1 month duration after taking 2-3 oral antibiotics for shoulder wound abscess. She reports that she has taken OTC Monistat with only temporary relief of her symptoms.Patient denies any odor to discharge states is itchy, denies any concern for STD exposure. She reports also rash to her left forearm which is red and itchy for the past few days, is [id number] in area to inner forearm area. Patient states that she has been using new cleaning products at job which she feels caused rash. Related Data Allergies Allergy/AdvReac Type Severity Reaction Status Date / Time No Known Allergies Allergy Verified 07/20/21 00:47 Review of Systems Review of Systems: CONSTITUTIONAL: Denies fever, chills, or sweats. EYES: Denies visual changes, redness, or discharge. ENT: Denies rhinorrhea, congestion, sore throat, or otalgia. CARDIOVASCULAR: Denies chest pain, palpitations, or edema. RESPIRATORY: Denies cough or dyspnea. GASTROINTESTINAL: Denies abdominal pain, nausea, vomiting, or diarrhea. GENITOURINARY: Denies dysuria or hematuria positive for vaginal ischarge of white thick with no odor and is itchy after taking antibiotics for skin abscess on shoulder SKIN: Positive for rash or itching to left inner forearm MUSCULOSKELETAL: Denies back pain, joint pain, or myalgia. NEUROLOGIC: Denies headache, numbness, or weakness. PSYCHIATRIC: Denies anxiety or depression. All systems reviewed & are unremarkable except as noted in HPI and below PMFSH Past Medical History Medical History (Updated 10/07/21 @ 11:20 by Lissett Ignacio NP) Cellulitis Tobacco abuse Wrist fracture Surgical History Surgical History History of appendectomy Family History Family History Sibling Thyroid ca Social History Social History Smoking packs per day: 0.50 Smoking cigarettes per day: 10.0 Years smoked: 20 Smoking pack-years: 10.00 Smoking status: Current every day smoker Tobacco type: cigarettes Second hand tobacco smoke exposure: Yes Substance use: never Gender identity (if verbalized by the patient): Female Spiritual care concerns: No Comments At time of signature, agree with nursing past medical, surgical, social and family history. There is no relevant family history pertinent to the presenting complaint Exam Narrative: GENERAL: Well-appearing, well-nourished, and in no acute distress. HEAD: Normocephalic, atraumatic. EYES: PERRLA and EOMI. ENT: Nares clear, no rhinorrhea or epistaxis. Mucous membranes moist.TM's normal with good light reflex, throat pink with no lesions exudates or tonsil enlargement NECK: Supple. no lymphadenopathy CHEST: Clear to auscultation. No respiratory distress. HEART: Regular rate and rhythm. No murmur heard. Normal peripheral pulses. ABDOMEN: Soft, nontender, nondistended, normal active bowel sounds. vaginal discharge which is thick white with no odor for past month is itchy EXTREMITIES: Normal range of motion. No edema. SKIN: Warm, dry, positive for 4cm X 4cm area to left inner forearm which is red raised and itchy, no exudate or vesicle formation. NEURO: No focal deficits. Alert and oriented x3. Course Vital Signs Vital signs: Vital Signs Temperature 37.2 C 10/04/21 17:37 Pulse Rate 102 H 10/04/21 17:37 Respiratory Rate 18 10/04/21 17:37 Blood Pressure 140/84 10/04/21 17:37 Pulse Oximetry 99 10/04/21 17:
== END 2021-10-04 19:03 | disposition home or self-care (01) ==
PROVIDERS: Emergency Provider Registered Nurse
DX: R21 Rash and other nonspecific skin eruption (principal); B37.3 Candidiasis of vulva and vagina; F17.210 Nicotine dependence, cigarettes, uncomplicated
CPT/HCPCS: 99213; G0463

== ENCOUNTER 2021-12-19 12:06 | Emergency (ER) | payer OTHER, SELFPAY ==
[2021-12-19 12:17] VITALS: BP 129/96; PULSE 96; RESP 16; TEMP 37.3; O2SAT 99
--- NOTE | 2021-12-19 12:50 | ED.GENADULT ---
HPI - General Adult General Chief complaint: Upper Respiratory Infection Stated complaint: not feeling well Source: patient and RN notes reviewed Mode of arrival: ambulatory History of Present Illness HPI narrative: This is a 36-year-old female that presented to urgent care with complaints of fatigue, swollen thyroiditis, munoz, and a white vaginal discharge with irritation she has not had a period for 2 months. Patient is requesting testing for thyroid cancer and menopause inform patient that if she is she can have all of the symptoms. Patient also notes that she had a yeast infection a couple months ago after taking Diflucan her infection resolved. patient did test positive for . The patient denies SOB, CP, palpitation, extremity numbness, lightheadedness, dizziness, constipation, diarrhea, chills, vaginal bleeding or odor, or fever. Related Data Allergies Allergy/AdvReac Type Severity Reaction Status Date / Time No Known Allergies Allergy Verified 07/20/21 00:47 Review of Systems Review of Systems: A 14 organ system Review of Systems was performed and pertinent positives included in the HPI, otherwise remaining ROS is negative. FOR[facility] Past Medical History Medical History Cellulitis Tobacco abuse Wrist fracture Surgical History Surgical History History of appendectomy Family History Family History Sibling Thyroid ca Social History Social History Smoking packs per day: 0.50 Smoking cigarettes per day: 10.0 Years smoked: 20 Smoking pack-years: 10.00 Smoking status: Current every day smoker Tobacco type: cigarettes Second hand tobacco smoke exposure: Yes Substance use: never Gender identity (if verbalized by the patient): Female Spiritual care concerns: No Exam Narrative: GENERAL: This is a well-nourished, well-developed patient, in no apparent distress. HEAD: normocephalic, atraumatic. EYES: PERRL. Sclera clear/white. Vision is grossly intact. EARS: External ears normal, auditory canals clear and without drainage, TMs normal without perforation. Hearing grossly intact. NOSE: External nose normal with no obvious nasal discharge, nares without redness, no rhinorrhea. THROAT: Mucous membranes moist, posterior pharynx clear. NECK: Neck supple, non-tender without lymphadenopathy, masses or thyromegaly. CARDIOVASCULAR: Regular rate and rhythm without murmurs, gallops, or rubs. RESPIRATORY: Clear to auscultation. Breath sounds equal bilaterally. No wheezes, rales, or rhonchi. GASTROINTESTINAL: Abdomen soft, non-tender, nondistended. Bowel sounds are active. No hepato-splenomegaly, or palpable masses. No guarding. SKIN: warm, intact with no suspicious lesions or rash, good texture and turgor. NEURO: awake, alert, and oriented to person, place and time. There were no obvious focal neurologic abnormalities. Steady gait EXTREMITIES: Normal range of motion. No edema. No calf tenderness. Negative Homans sign bilaterally. BACK: Nontender without deformity or crepitance. No flank tenderness. Course Course Emergency Course: Patient will be given Diflucan x2 days if her symptoms do not resolve she will have vaginal insertion. She will only get 2 days of Diflucan due to her . Level of Care: Express Care Visit Vital Signs Vital signs: Vital Signs Temperature 99.1 F 12/19/21 12:17 Pulse Rate 96 12/19/21 12:17 Respiratory Rate 16 12/19/21 12:17 Blood Pressure 129/96 H 12/19/21 12:17 Pulse Oximetry 99 12/19/21 12:17 Temperature 99.1 F 12/19/21 12:17 Pulse Rate 96 12/19/21 12:17 Respiratory Rate 16 12/19/21 12:17 Blood Pressure 129/96 H 12/19/21 12:17 Pulse Oximetry 99 12/19/21 12:17 Medical Decision Adela
== END 2021-12-19 12:52 | disposition home or self-care (01) ==
PROVIDERS: Emergency Provider Nurse Practitioner
DX: Z32.01 Encounter for pregnancy test, result positive (principal); O99.330 Smoking (tobacco) complicating pregnancy, unspecified trimester; Z3A.00 Weeks of gestation of pregnancy not specified
CPT/HCPCS: 81003; 81025; 99213; G0463

== ENCOUNTER 2024-04-25 18:45 | Emergency (ER) | payer OTHER, SELFPAY ==
[2024-04-25 18:56] VITALS: BP 135/86; PULSE 83; RESP 16; TEMP 36.6; O2SAT 100
--- NOTE | 2024-04-25 19:39 | ED.FEMALEGU ---
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 Patient reports that she has a doctors appointment on Thursday for female examination and didn't want to wait. Instructed patient that it may take up to 4 days to get back results of vaginal swab to check for BV or yeast infection and patient reports that she will wait till MD appointment on Thursday. Patient reports that she is concerned for possible STD exposure also reports unprotected sex with 2 different partners lately. Instructed patient that we can sent urine to check for gonorrhea,chlamydia and trichomonas thru urine and would probably have test results back tomorrow evening and patient wants to proceed with that test.Patient is not on control reports that she just finished her menses. MD elicited complaint: vaginal discharge and other (concern for STD exposure) Onset (ago): day(s) (few days) Location of symptoms: vaginal Vaginal discharge: white and vaginal odor Vaginal bleeding: none Related Data Allergies Allergy/AdvReac Type Severity Reaction Status Date / Time No Known Allergies Allergy Verified 07/20/21 00:47 Review of Systems Review of Systems: CONSTITUTIONAL: Denies fever, chills, or sweats. EYES: Denies visual changes, redness, or discharge. ENT: Denies rhinorrhea, congestion, sore throat, or otalgia. CARDIOVASCULAR: Denies chest pain, palpitations, or edema. RESPIRATORY: Denies cough or dyspnea. GASTROINTESTINAL: Denies abdominal pain, nausea, vomiting, or diarrhea. GENITOURINARY: Denies dysuria or hematuria.Reports white vaginal discharge with fishy odor, reports that she just finished her menses SKIN: Denies rash or itching. MUSCULOSKELETAL: Denies back pain, joint pain, or myalgia. NEUROLOGIC: Denies headache, numbness, or weakness. PSYCHIATRIC: Denies anxiety or depression. All systems reviewed & are unremarkable except as noted in HPI and below PMFSH Past Medical History Medical History Cellulitis Tobacco abuse Wrist fracture Surgical History Surgical History History of appendectomy Family History Family History Sibling Thyroid ca Social History Social History Smoking packs per day: 0.50 Smoking cigarettes per day: 10.0 Years smoked: 20 Smoking pack-years: 10.00 Smoking status: Current every day smoker Tobacco type: cigarettes Second hand tobacco smoke exposure: Yes Substance use: never Gender identity (if verbalized by the patient): Female Spiritual care concerns: No Comments At time of signature, agree with nursing past medical, surgical, social and family history. There is no relevant family history pertinent to the presenting complaint Exam Narrative: GENERAL: Well-appearing, well-nourished, and in no acute distress. HEAD: Normocephalic, atraumatic. EYES: PERRLA and EOMI. ENT: Nares clear, no rhinorrhea or epistaxis. Mucous membranes moist.TM's normal throat pink with no swelling NECK: Supple. no lymphadenopathy CHEST: Clear to auscultation. No respiratory distress.SAO2 100% on room air HEART: Regular rate and rhythm. No murmur heard. Normal peripheral pulses. ABDOMEN: Soft, nontender, nondistended, normal active bowel sounds. no abdominal pain or any suprapubic pressure, reports white vaginal discharge with fishy odor EXTREMITIES: Normal range of motion. No edema. SKIN: Warm, dry, no rash. NEURO: No focal deficits. Alert and orie
[2024-04-26 20:07] LABS: Trichomonas Vag PCR NOT DETECTED (NOT DETECTE)
[2024-04-26 20:31] LABS: Chlamydia trachomatis NOT DETECTED (NOT DETECTE); Neisseria gonorrhoeae PCR NOT DETECTED (NOT DETECTE)
== END 2024-04-25 20:00 | disposition home or self-care (01) ==
PROVIDERS: Emergency Provider Registered Nurse; PCP Family Medicine
DX: Z11.3 Encounter for screening for infections with a predominantly sexual mode of transmission (principal); F17.210 Nicotine dependence, cigarettes, uncomplicated
CPT/HCPCS: 87491; 87591; 87661; 99213; 99214; G0463

== ENCOUNTER 2024-08-20 17:38 | Emergency (ER) | payer OTHER, SELFPAY ==
[2024-08-20 17:44] VITALS: BP 123/86; PULSE 90; RESP 20; TEMP 37.6; O2SAT 100
--- NOTE | 2024-08-20 18:08 | ED.SKABFB ---
HPI - Skin/Abscess/Foreign Bdy General Chief complaint: Skin/Abscess/Foreign Body Stated complaint: Skin Sore Time Seen by Provider: 08/20/24 17:58 Source: patient, RN notes reviewed and old records reviewed Mode of arrival: ambulatory Limitations: no limitations History of Present Illness HPI narrative: 39 year old female who presents to [facility] care with complaining of worsening round tender nodule in left axilla for the past 4 days after shaving. Patient reports that it initially was pea sized but has increased in size to approximate 2 cm diameter with site increasingly painful. Patient reports that she has applied warm compresses to area. Reports no known fevers. MD complaint: abscess/boil Onset (ago): day(s) (4) Location: LUE (axilla region) Severity: moderate Treatments prior to arrival: other (warm compresses) Related Data Home Medications Medication Instructions Recorded Confirmed norethindrone (contraceptive) 0.35 0.35 mg PO DAILY 08/20/24 08/20/24 mg tablet Allergies Allergy/AdvReac Type Severity Reaction Status Date / Time No Known Allergies Allergy Verified 07/20/21 00:47 Review of Systems Review of Systems: CONSTITUTIONAL: Denies fever, chills, or sweats. CARDIOVASCULAR: Denies chest pain, palpitations, or edema. RESPIRATORY: Denies cough or dyspnea. GASTROINTESTINAL: Denies abdominal pain, nausea, vomiting SKIN: Reports redness and swelling nodule to left axilla which is warm and tender Denies purulent drainage, throbbing pain to area MUSCULOSKELETAL: Denies myalgia. NEUROLOGIC: Denies headache, numbness All systems reviewed & are unremarkable except as noted in HPI and below PMFSH Past Medical History Medical History Cellulitis Tobacco abuse Wrist fracture Surgical History Surgical History History of appendectomy Family History Family History Sibling Thyroid ca Social History Social History Smoking packs per day: 0.50 Smoking cigarettes per day: 10.0 Years smoked: 20 Smoking pack-years: 10.00 Smoking status: Current every day smoker Tobacco type: cigarettes Second hand tobacco smoke exposure: Yes Substance use: never Gender identity (if verbalized by the patient): Female Spiritual care concerns: No Comments At time of signature, agree with nursing past medical, surgical, social and family history. There is no relevant family history pertinent to the presenting complaint Exam Narrative: GENERAL: Well-appearing, well-nourished, and in no acute distress. HEAD: Normocephalic, atraumatic. EYES: PERRLA and EOMI. ENT: Nares clear, no rhinorrhea or epistaxis. Mucous membranes moist. NECK: Supple.no llymphadenopathy CHEST: Clear to auscultation. No respiratory distress.SAO2 100% on room air HEART: Regular rate and rhythm. No murmur heard. Normal peripheral pulses. ABDOMEN: Soft, nontender, nondistended, normal active bowel sounds. EXTREMITIES: Normal range of motion. No edema. SKIN: Warm, dry. Erythema, induration, tenderness, warmth with area 2cm diameter, No vesicles,some fluctuation to center.of abscess NEURO: No focal deficits. Alert and oriented x3. Course Course Emergency Course: Patient is aware of diagnosis, understands and agrees to treatment plan. Anticipatory guidance given. Patient agrees to follow-up as directed and is aware of reasons to seek care at the emergency department. Portions of this record may have been created with voice recognition software Level of Care: Express Care Visit Vital Signs Vital signs: Vital Signs Temperature 37.6 C 08/20/24 17:44 Pulse Rate 90 08/20/24 17:44 Respiratory Rate 20 08/20/24 17:44 Blood Pressure 123/86 08/20/24 17:44 Pulse Oximetry 100 08/20/24 17:
== END 2024-08-20 18:30 | disposition home or self-care (01) ==
PROVIDERS: Emergency Provider Registered Nurse
DX: L02.412 Cutaneous abscess of left axilla (principal); F17.210 Nicotine dependence, cigarettes, uncomplicated
CPT/HCPCS: 10060; 99213; G0463

== ENCOUNTER 2025-07-25 16:47 | Emergency (ER) | payer OTHER, SELFPAY ==
[2025-07-25 16:58] VITALS: BP 147/65; PULSE 95; RESP 18; TEMP 36.7; O2SAT 100
[2025-07-25 17:14] LABS: BEDSIDEPREGUCG Negative (Negative)
[2025-07-25 17:17] LABS: EDUAAPPEAR Clear; EDUABILI Negative (Negative); EDUABLOOD Negative (Negative); EDUACOLOR1 Yellow; EDUAGLUCOSE Negative (Negative); EDUAKETONE Negative (Negative); EDUALEUKO Negative (Negative); EDUANITRATE Negative (Negative); EDUAPH 6.0; EDUAPROTEIN Negative (Negative); EDUASPGRAVITY 1.030; EDUAUROBILI 0.2
--- OUTSIDE RECORDS SUMMARY | 2025-07-25 17:23 | XMS_ITS | Clinical Summary ---
Author Organization [facility] Address [address] [place] [address] Phone Care Team Providers Care Make Up Girl Name Role Phone Justyn Chand MD Primary Care Provider [phone] Allergies Active Allergy Reactions Criticality Noted Date Comments Duloxetine Hcl Rash 07/12/2018 Medications neomycin-polymy isabelle-hydrocortis one (CORTISPORIN) [id number] 3 Drops in left ear 4 times daily. 10 mL 05/09/2025 Active traMADol (ULTRAM) 50 MG TabletIndicatio ns:External otitis of left ear Take 1-2 Tablets by mouth every 6 hours as needed for Mild or more severe pain. 20 Tablet 05/09/2025 Active Active Problems No known active problems Encounters Date Type Department Care Team Description 05/09/2025 5:21 AM CDT - 05/09/2025 5:54 AM CDT Emergency [facility] Emergency [address] [place] [address] Andrew Cerda MD External otitis of left ear Discharge Disposition: Discharged to home or Selfcare 05/09/2025 Travel from Last 3 Months Immunizations Immunization Administration Dates Next Due DTP Vaccine 04/27/1990, 8,1985,1984,1985 Hepatitis A Vaccine 04/26/2002 Hepatitis A, Pediatric, Unsp ecified Formulation 09/22/2001 Influenza Vaccine, Quadrivalent, PF 11/07/2016 Influenza, Seasonal, Injecta ble, Undefined 08/20/2016,08/20/2015 MMR Vaccine 05/30/1993,05/28/1993,10/06/1986 OPV 04/27/1990, 8,10/06/1986,1984,1985 TDAP Vaccine 04/03/2020,06/29/2012 Social History Tobacco Use Types Packs/Day Years Used Date Smoking Tobacco: Every Day Cigarettes Smokeless Tobacco: Never Tobacco Cessation:Ready to Q uit: Not Asked; Counseling Given: Not Answered Alcohol Use Standard Drinks/Week Comments No 0 (1 standard drink = 0.6 oz pur e alcohol) Sexually Active Control Partners Comments Yes Comments No Sex and Gender Information Value Date Recorded Sex Assigned at Not on file Legal Sex Female 8:10 PM CDT Gender Identity Not on file Sexual Orientation Not on file Last Filed Vital Signs Vital Sign Reading Time Taken Comments Blood Pressure 119/83 05/09/2025 5:28 AM CDT Pulse 94 05/09/2025 5:28 AM CDT Temperature 36.9 C (98.5 F) 05/09/2025 5:25 AM CDT Respiratory Rate 18 05/09/2025 5:28 AM CDT Oxygen Saturation 100% 05/09/2025 5:28 AM CDT Inhaled Oxygen Concentration - - Weight 57.3 kg (126 lb 5.2 oz) 05/09/2025 5:25 A M CDT Height 162.6 cm (5' 4) 05/09/2025 5:25 AM CDT Body Mass Index 21.68 05/09/2025 5:25 AM CDT Plan of Treatment Health Maintenance Due Date Last Done Comments Hepatitis C Virus (HCV) Screening 1985 Mammogram 1985 Hepatitis B Immunization (1 of 3 - 19+ 3-dose series) 2004 Pneumococcal Immunization Combined (1 of 2 - PCV) 2004 Pap Smear 2006 Human Papillomavirus (HPV) Immunization (1 - 3-dose SCDM series) 2012 Cervical Cancer Screening (CCS) 2015 HPV/Cotest 2015 Discussion re Starting/Frequency of Mammograms 2025 Influenza Immunization (#1) 2025 12/2 01/2016, 08/20/2016, 08/20/2015 SARS-COV-2 Immunization ( season) 2025 DTaP/Tdap/Td Immunization (8 - Td or Tdap) 04/03/2030 04/03/2020, 06/29/2012, 04/27/1990, Additional history exists Respiratory Syncytial Virus (RSV) Immunization (Adult) (1 - 1-dose 75+ series) 2060 Meningococcal Immunization (ACWY) Aged Out No longer eligible based on patient's age to complete this topic Rotavirus Immunization Aged Out No lo nger eligible based on patient's age to complete this topic Insurance [place]ICAID [place] Care Teams Make Up Girl Relationship Specialty Start Date End Date Justyn Chand MD [address] [place] [id number] PCP - General Geriatric Medicine 05/09/25
--- NOTE | 2025-07-25 18:03 | ED_ITS ---
HPI - General Adult General Chief complaint: Urogenital-Female Stated complaint: Urinary Problem Source: patient Mode of arrival: ambulatory Limitations: no limitations History of Present Illness HPI narrative: Patient presents for evaluation of vaginal discharge. She indicates symptoms started 3-4 days ago. She believes she has a yeast infection as the discharge is thick, white and she has associated itching. A few weeks ago she had low back pain, but that has since resolved. She also reports urinary frequency and dysuria. She denies any fever, chills, abdominal pain or vaginal bleeding. She is not on contraception. LMP was 07/05/25. She found out her boyfriend was cheating on her about one month ago. Related Data Allergies Allergy/AdvReac Type Severity Reaction Status Date / Time No Known Allergies Allergy Verified 07/25/25 16:57 Review of Systems Review of Systems: CONSTITUTIONAL: Denies fever, chills, or sweats. EYES: Denies visual changes, redness, or discharge. ENT: Denies rhinorrhea, congestion, sore throat, or otalgia. CARDIOVASCULAR: Denies chest pain, palpitations, or edema. RESPIRATORY: Denies cough or dyspnea. GASTROINTESTINAL: Denies abdominal pain, nausea, vomiting, or diarrhea. GENITOURINARY: Reports dysuria and urinary frequency. Reports thick white clumpy vaginal discharge with associated itching. Denies vaginal bleeding. SKIN: Denies rash or itching. MUSCULOSKELETAL: Denies back pain, joint pain, or myalgia. NEUROLOGIC: Denies headache, numbness, dizziness, or weakness. PSYCHIATRIC: Denies anxiety or depression. [facility], [facility] Past Medical History Medical History Cellulitis Tobacco abuse Wrist fracture Surgical History Surgical History History of appendectomy Family History Family History Sibling Thyroid ca Social History Social History Smoking packs per day: 0.50 Smoking cigarettes per day: 10.0 Years smoked: 20 Smoking pack-years: 10.00 Smoking status: Current every day smoker Tobacco type: cigarettes Second hand tobacco smoke exposure: Yes Substance use: never Gender identity (if verbalized by the patient): Female Spiritual care concerns: No Exam Narrative: GENERAL: Well-appearing, well-nourished, and in no acute distress. HEAD: Normocephalic, atraumatic. EYES: PERRLA and EOMI. ENT: Nares clear, no rhinorrhea or epistaxis. Mucous membranes moist. Oropharynx without tonsillar hypertrophy exudate or other lesions. Bilateral TMs pearly lyons nonbulging NECK: Supple. No adenopathy or masses. No carotid bruits or JVD CHEST: Clear to auscultation. No respiratory distress. No wheezes rales or rhonchi HEART: Regular rate and rhythm. No murmur heard. Normal peripheral pulses. ABDOMEN: Soft, nontender, nondistended, normal active bowel sounds. EXTREMITIES: Normal range of motion. No edema. SKIN: Warm, dry, no rash. NEURO: No focal deficits. Alert and oriented x3. PSYCH: Normal mood and affect. Course Course Emergency Course: This is a 40 year female who presented for evaluation of vaginal discharge. negative. Urinalysis without any evidence of UTI. Discussed possible etiologies which include STI versus BV versus vaginal candidiasis. Pt would like to be treated for all as she recently found out her boyfriend was cheating on her. She was given Rocephin while here and will be discharged with doxycycline, Flagyl and Diflucan. Encouraged to have comprehensive STI examination conducted. She should follow-up with her primary provider and go to the ER for worsening symptoms. Patient in agreement with plan of care. Level of Care: Express Care Visit Vital Signs Vital signs: Vital Signs Temperature 36.7 C 07/25/25 16:58 Pulse Rate 95 07/25/25 16:58 Respiratory Rate 18 07/25/25 16:58 Blood Pressure 147/65 H 07/25/25 16:58 Pulse Oximetry 100 07/25/25 16:58 Oxygen Delivery Room Air 07/25/25 16:58 Temperature 36.7 C 07/25/25 16:58 Pulse Rate 95 07/25/25 16:58 Respiratory Rate 18 07/25/25 16:58 Blood Pressure 147/65 H 07/25/25 16:58 Pulse Oximetry 100 07/25/25 16:58 Oxygen Delivery Room Air 07/25/25 16:58 Medical Decision Making Vital Signs Vital Signs: Vital Signs Temperature 36.7 C 07/25/25 16:58 Pulse Rate 95 07/25/25 16:58 Respiratory Rate 18 07/25/25 16:58 Blood Pressure 147/65 H 07/25/25 16:58 Pulse Oximetry 100 07/25/25 16:58 Oxygen Delivery Room Air 07/25/25 16:58 Temperature 36.7 C 07/25/25 16:58 Pulse Rate 95 07/25/25 16:58 Respiratory Rate 18 07/25/25 16:58 Blood Pressure 147/65 H 07/25/25 16:58 Pulse Oximetry 100 07/25/25 16:58 Oxygen Delivery Room Air 07/25/25 16:58 Lab Data Labs: Lab Results 07/25/25 Range/Units 17:12 POC Urine Color Yellow POC Urine Clarity Clear POC Urine pH 6.0 POC Ur Specif [place] 1.030 POC Urine Protein Negative (Negative) POC Ur Glucose (UA) Negative (Negative) POC Urine Ketones Negative (Negative) POC Urine Blood Negative (Negative) POC Urine Nitrite Negative (Negative) POC Urine Bilirubin Negative (Negative) POC Urine Urobilinogen 0.2 POC U Leukocyte Esteras Negative (Negative) POC Urine HCG, Qual Negative (Negative) Discharge Plan Discharge Clinical Impression: Vaginitis, Possible exposure to sexually transmitted infection Patient Disposition: Home Condition: Stable Instructions: Antibiotic Form, Safe Sex Practices (ED), Yeast Infection (ED), Vaginal Discharge (ED) Patient Language: Urdu Prescriptions: New metronidazole 500 mg tablet 500 mg PO BID 7 Days Qty: 14 0RF doxycycline hyclate 100 mg capsule 100 mg PO BID Qty: 14 0RF fluconazole 150 mg tablet 150 mg PO ONCE Qty: 1 1RF Rx Instructions: as a single dose Follow-up/Referrals: Tony Lopez MD [Physician, Family Practice] Time of Disposition: 18:02
[2025-07-25] MEDS: cefTRIAXone 500 MG, LIDOCAINE 1% LOCAL INJ 1 ML IM (18:05)
[2025-07-25 20:07] LABS: Trichomonas Vag PCR NOT DETECTED (NOT DETECTE)
== END 2025-07-25 18:26 | disposition home or self-care (01) ==
PROVIDERS: Emergency Provider Nurse Practitioner
DX: N76.0 Acute vaginitis (principal); Z11.3 Encounter for screening for infections with a predominantly sexual mode of transmission; F17.210 Nicotine dependence, cigarettes, uncomplicated
CPT/HCPCS: 81003; 81025; 87491; 87591; 87661; 96372; 99213; G0463; J0696; J2003